=== PATIENT | male | born 1965 | race Caucasian/White ===

== ENCOUNTER 2019-07-12 17:11 | Emergency (ER) | payer MEDICAID ==
[2019-07-12 17:21] VITALS: BP 147/79
--- NOTE | 2019-07-12 17:46 | ED Physician Documentation ---
PD HPI UPPER EXT INJURY - Stated complaint Stated Complaint: RT HAND INJ - Chief complaint Chief Complaint: Ext Problem - History obtained from History obtained from: Patient - History of Present Illness Location: Right, Hand Type of injury: Fall Where injury occurred: Home Timing - onset: How many days ago (8) Timing - details: Still present Worsened by: Moving Similar symptoms before: Has not had sx before - Additonal information Additional information: The patient is a 54-year-old male who presents with pain on the ulnar aspect of his right hand. He fell while running 8 days ago, impacting his hand on the ground. He denies any other injuries. He is right-hand dominant. He presents now because the pain has not resolved since the initial injury. He has remote history of right wrist fracture. Review of Systems Constitutional: denies: Fever Skin: denies: Rash, Laceration (s) Musculoskeletal: reports: Extremity pain (right hand) Neurologic: denies: Focal weakness, Numbness PD PAST MEDICAL HISTORY - Allergies Allergies/Adverse Reactions: Allergies Allergy/AdvReac Type Severity Reaction Status Date / Time heparin Allergy Unknown Verified 07/12/19 17:21 PD ED PE NORMAL - Vitals Vital signs reviewed: Yes (Systolic hypertension) - General General: Alert and oriented X 3, Well developed/nourished - HEENT HEENT: Atraumatic - Respiratory Respiratory: No respiratory distress - Derm Derm: No rash - Extremities Extremities: Other (There is mild tenderness to palpation at the ulnar aspect of the right hand, without bony tenderness to palpation. He is able to fully flex and extend all digits against resistance. Distal neurovascular is intact. There is no break in the integument.) - Neuro Neuro: Alert and oriented X 3, No motor deficit, No sensory deficit Results - Vitals Vitals: Vital Signs - 24 hr 07/12/19 17:19 Temperature 36.7 C Respiratory 18 Rate Blood Pressure 147/79 H O2 Saturation 99 Oxygen O2 Source Room air - Rads (name of study) Right hand Radiology: Prelim report reviewed, EMP read contemporaneously, See rad report (No acute bony abnormality.) PD MEDICAL DECISION MAKING - ED course Complexity details: reviewed results, considered differential, d/w patient ED course: The patient's presentation is most consistent with contusion to the right hand. X-ray reveals no evidence of acute bony abnormality. I discussed with him the results of the x-ray, expected course of injury, symptomatic treatment, as well as potentially worrisome signs or symptoms that should prompt reevaluation. Departure - Departure Disposition: 01 Home, Self Care Clinical Impression: Contusion of right hand Qualifiers: Encounter type: initial encounter Qualified Code(s): S60.221A - Contusion of right hand, initial encounter Condition: Stable Instructions: ED Contusion Hand Comments: Tylenol or ibuprofen if needed for discomfort. Let pain be your guide to activity level. Follow-up with your primary physician or return to the emergency department if you develop increasing pain or swelling of your hand, or otherwise worsening symptoms.
--- NOTE | 2019-07-12 17:54 | XRAY Report ---
Reason: pain, fall 8 days ago Procedure Date: 07/12/2019 Accession Number: [id number] / [id number] Procedure: XR - Hand 3 View RT CPT Code: FULL RESULT: EXAM: RIGHT HAND RADIOGRAPHY EXAM DATE: 07/12/2019 05:35 PM. CLINICAL HISTORY: Pain, fall 8 days ago. COMPARISON: None. TECHNIQUE: 3 views. FINDINGS: Bones: Normal. No fractures or bone lesions. Joints: Normal. No subluxations. Soft Tissues: Normal. No soft tissue swelling. IMPRESSION: No acute displaced fracture or malalignment. Unremarkable soft tissues. RADIA
== END 2019-07-12 18:04 | disposition home or self-care (01) ==
LOC: ED 17:11
DX: S60.221A Contusion of right hand, initial encounter (principal); W01.0XXA Fall on same level from slipping, tripping and stumbling without subsequent striking against object, initial encounter; Y93.02 Activity, running; Y92.009 Unspecified place in unspecified non-institutional (private) residence as the place of occurrence of the external cause
CPT/HCPCS: 99282; 99283

== ENCOUNTER 2020-08-25 19:57 | Emergency (ER) | payer MEDICAID ==
[2020-08-25] MEDS ORDERED: IBUPROFEN 800 MG TABLET PO STA (20:49)
--- NOTE | 2020-08-25 20:59 | ED Physician Documentation ---
PD HPI UPPER EXT INJURY - Stated complaint Stated Complaint: RIGHT HAND INJURY - Chief complaint Chief Complaint: Ext Problem - History obtained from History obtained from: Patient, Family - History of Present Illness Location: Right, Hand Type of injury: Fall Where injury occurred: Home Timing - onset: Yesterday Pain level max: 7 Pain level now: 6 Improved by: Rest, Ice, Immobilization Worsened by: Moving, Palpating Associated symptoms: Swelling, Discolored. No: Weakness, Numbness, Tingling Recently seen: Not recently seen - Additonal information Additional information: 55-year-old male with right hand pain states started yesterday. States is unsure what happened but thinks he fell. Worse with movement and better with rest. Review of Systems Constitutional: denies: Fever, Chills GI: denies: Vomiting, Diarrhea Skin: denies: Rash Musculoskeletal: denies: Neck pain, Back pain Neurologic: denies: Headache PD PAST MEDICAL HISTORY - Past Medical History Past Medical History: Yes Cardiovascular: Hypertension, High cholesterol Respiratory: COPD Neuro: None Endocrine/Autoimmune: Type 2 diabetes GI: GERD : None HEENT: None Psych: None Musculoskeletal: None Derm: None - Past Surgical History Past Surgical History: Yes Cardiovascular: Coronary stent - Present Medications Home Medications: Ambulatory Orders Medication Instructions Recorded Confirmed Ibuprofen [Motrin] 800 mg PO Q8H PRN #30 tablet 08/25/20 - Allergies Allergies/Adverse Reactions: Allergies Allergy/AdvReac Type Severity Reaction Status Date / Time heparin Allergy Unknown Verified 08/25/20 20:01 - Social History Does the pt smoke?: No Smoking Status: Never smoker Does the pt drink ETOH?: No Does the pt have substance abuse?: No - Immunizations Immunizations are current?: Yes - POLST Patient has POLST: No PD ED PE NORMAL - Vitals Vital signs reviewed: Yes - General General: Alert and oriented X 3, No acute distress - HEENT HEENT: Moist mucous membranes - Neck Neck: Supple, no meningeal sign - Cardiac Cardiac: RRR - Respiratory Respiratory: No respiratory distress, Clear bilaterally - Derm Derm: Warm and dry - Extremities Extremities: Other (R hand - Ecchymosis and swelling to the dorsum of the right hand. Neurovascularly intact. Diffuse tenderness. Soft compartments. Brisk cap refill.) - Neuro Neuro: Alert and oriented X 3 Results - Vitals Vitals: Vital Signs - 24 hr 08/25/20 08/25/20 20:01 20:07 Temperature 36.5 C 36.5 C Heart Rate 68 68 Respiratory 16 16 Rate Blood Pressure 145/75 H 145/75 H O2 Saturation 99 99 Oxygen O2 Source Room air - Rads (name of study) Right hand x-ray Radiology: Prelim report reviewed, EMP read contemporaneously, See rad report (No acute abnormalities) Procedures - Splint (location) volar Splint applied by: Physician, Tech Type of splint: Fiberglass, Short arm Other: Patient tolerated well, No complications, Neurovascular intact PD MEDICAL DECISION MAKING - ED course Complexity details: reviewed results, re-evaluated patient, considered differential, d/w patient, d/w family ED course: Patient was in [place], woke up with a bruised hand. Unclear what happened. No significant findings on x-ray. He is swollen and ecchymotic, no compartment syndrome. No evidence of infection. Placed in a volar splint for comfort we will have him recheck with his doctor in 1 week. Patient counseled regarding signs and symptoms for which I believe and urgent re-evaluation would be necessary. Patient with good understanding of and agreement to plan and is comfortable going home at this time This document was made in part using voice recognition software. While efforts are made to proofread this document, sound alike and grammatical errors may occur. Departure - Departure Disposition: 01 Home, Self Care Clinical Impression: Contusion of right hand Qualifiers: Encounter type: initial encounter Qualified Code(s): S60.221A - Contusion of right hand, initial encounter Condition: Good Instructions: ED Contusion Hand Follow-Up: Marta Baez MD [Primary Care Provider] - Within 1 week Prescriptions: Ibuprofen [Motrin] 800 mg PO Q8H PRN #30 tablet PRN Reason: PAIN &/OR FEVER Comments: There are no fractures visible on your x-ray today. Stay in the splint for the next week and be reevaluated by your doctor next week. Return if you worsen.
--- NOTE | 2020-08-25 21:45 | XRAY Report ---
PROCEDURE: Hand 3 View RT INDICATIONS: fall, R hand pain TECHNIQUE: 3 views of the hand(s) acquired. COMPARISON: None FINDINGS: Bones: No fractures or dislocations. No suspicious bony lesions. Soft tissues: No suspicious soft tissue calcifications. IMPRESSION: Intact right hand. Reviewed by: Elen Perera MD on 08/25/2020 9:43 PM PDT Approved by: Elen Perera MD on 08/25/2020 9:43 PM PDT Station ID: [id number]
[2020-08-25 22:19] VITALS: BP 142/75
== END 2020-08-25 22:18 | disposition home or self-care (01) ==
LOC: ED 19:57
DX: S60.221A Contusion of right hand, initial encounter (principal); W19.XXXA Unspecified fall, initial encounter; I10 Essential (primary) hypertension; E11.9 Type 2 diabetes mellitus without complications
CPT/HCPCS: 29125; 73130; 99283; 99284; A9270

== ENCOUNTER 2020-09-12 13:34 | Outpatient (CLI) | payer MEDICAID ==
--- NOTE | 2020-09-12 17:06 | XRAY Report ---
PROCEDURE: Hand 3 View RT INDICATIONS: RT HAND PAIN TECHNIQUE: 3 views of the hand(s) acquired. COMPARISON: X-ray hand 08/25/2020 FINDINGS: Bones: No fractures or dislocations. No suspicious bony lesions. Soft tissues: No suspicious soft tissue calcifications. IMPRESSION: No visualized acute fracture or dislocation. However, occult injury cannot be excluded. Recommend jagjit rt interval imaging follow-up in 7-10 days as clinically indicated for additional evaluation. Reviewed by: Roya Lea MD on 09/12/2020 5:04 PM PST Approved by: Roya Lea MD on 09/12/2020 5:04 PM PST Station ID: [id number]
== END 2020-09-12 13:35 | disposition home or self-care (01) ==
LOC: DI 13:34
PROVIDERS: ATTEND Family Medicine
DX: M79.641 Pain in right hand (principal)

== ENCOUNTER 2021-01-06 12:12 | Observation (INO) | payer MEDICAID ==
--- NOTE | 2021-01-06 12:58 | ED Physician Documentation ---
History of Present Illness - Stated complaint Stated Complaint: CORBYYAWA - Chief complaint Chief Complaint: Heent - Additonal information Additional information: 55-year-old diabetic male presents to the emergency department for evaluation of 3 episodes over the last 3-4 months in which he will suddenly have palpitations or racing heart, feel as though he is going to faint or pass out. During this time he begins to have visual disturbances in his left eye which feels as though he is looking through a kaleidoscope. These episodes last about 30 minutes. He denies any facial droop loss of speech arm or leg weakness. He denies any chest pain but will feel nauseated during the symptoms. Last episode occurred just about 5 days ago and then again this morning. He denies the symptoms at this time He denies a sensation that the room is spinning. He has had no recent falls or trauma. He is not anticoagulated. He is a diabetic and reports good glucose control with a last A1c under 7. He is a moderate drinker. Denies tobacco. Meds: Metformin, amlodipine, fenofibrate, glipizide, lisinopril, lovastatin, methocarbamol, omeprazole. Review of Systems Constitutional: denies: Fever, Chills Eyes: reports: Other (kaleidascope vision left eye) Ears: reports: Reviewed and negative Nose: reports: Reviewed and negative Throat: reports: Reviewed and negative Cardiac: reports: Palpitations. denies: Chest pain / pressure, Pedal edema, Calf pain Respiratory: denies: Dyspnea, Cough, Hemoptysis, Wheezing GI: reports: Nausea. denies: Abdominal Pain, Abdominal Swelling, Vomiting, Diarrhea, Hematemesis : denies: Dysuria, Frequency Skin: denies: Rash, Lesions, Abrasion (s) Neurologic: reports: Near syncope. denies: Generalized weakness, Focal weakness, Numbness, Difficulty speaking, Syncope, Seizure, Confused, Altered mental status, Headache, Head injury, LOC PD PAST MEDICAL HISTORY - Past Medical History Cardiovascular: Hypertension, High cholesterol Respiratory: COPD Neuro: None Endocrine/Autoimmune: Type 2 diabetes GI: GERD : None HEENT: None Psych: None Musculoskeletal: None Derm: None - Past Surgical History Past Surgical History: Yes Cardiovascular: Coronary stent - Present Medications Home Medications: Ambulatory Orders Medication Instructions Recorded Confirmed Ibuprofen [Motrin] 800 mg PO Q8H PRN #30 tablet 10/19/20 - Allergies Allergies/Adverse Reactions: Allergies Allergy/AdvReac Type Severity Reaction Status Date / Time heparin Allergy Unknown Verified 01/06/21 12:29 - Social History Does the pt smoke?: No Smoking Status: Never smoker Does the pt drink ETOH?: No Does the pt have substance abuse?: No - Immunizations Immunizations are current?: Yes - POLST Patient has POLST: No PD ED PE EXPANDED - General General: Alert, No acute distress - HEENT HEENT: PERRL, EOMI (limited fundoscopiv bilaterally did not reveal blurred optic discs), Moist mucous membranes, Pharynx normal - Eyes Eyes: PERRL, Normal accommodation - Neck Neck: Supple w/out meningeal sx. No: Adenopathy - Cardiac Cardiac: Regular Rate, Regular Rhythm, Radial strong equal, Pedal strong equal, Cap refill < 2 sec. No: Murmur Present - Respiratory Respiratory: Clear to ausultation frieda. No: Distress, Labored - Abdomen Abdomen: Normal Bowel sounds, Distended. No: Tender to palpation - Derm Derm: Normal color, Warm and dry. No: Rash, Petecchiae, Purpura - Extremities Extremities: Normal. No: Deformity, Tenderness, Pedal edema bilateral, Right calf TTP/cord, Left calf TTP/cord - Neuro Neuro: Alert and Oriented X 3, CNII-XII intact, Cerebellar nl, Normal gait, Normal finger nose, Normal speech. No: Nystagmus - GCS Eye Opening: Spontaneous Motor: Obeys Commands Verbal: Oriented Total: 15 Results - Vitals Vitals: Vital Signs - 24 hr 01/06/21 01/06/21 01/06/21 12:26 14:09 16:13 Temperature 36.3 C L Heart Rate 72 59 L Heart Rate [ 59 L Sitting] Heart Rate [ 65 Standing] Heart Rate [ 59 L Supine] Respiratory 16 13 Rate Blood Pressure 129/84 H 126/73 Blood Pressure 114/71 [Sitting] Blood Pressure 143/86 H [Standing] Blood Pressure 126/76 [Supine] O2 Saturation 99 100 Oxygen O2 Source Room air - EKG (time done) 1348 Rate: Rate (enter#) (67) Rhythm: NSR [place]: Normal Intervals: Normal [place] QRS: Normal Ischemia: Normal ST segments Compare to prior EKG: Old EKG unavailable Computer interpretation: Agree with computer - Labs Labs: Laboratory Tests 01/06/21 01/06/21 01/06/21 12:58 12:58 13:01 WBC 6.4 RBC 4.74 Hgb 13.7 L Hct 42.1 MCV 88.8 MCH 28.9 MCHC 32.5 RDW 12.4 Plt Count 291 MPV 10.4 Neut # (Auto) 4.0 Lymph # (Auto) 1.9 Cassia # (Auto) 0.4 Eos # (Auto) 0.1 Baso # (Auto) 0.0 Absolute Nucleated RBC 0.00 Nucleated RBC % 0.0 Whole Blood INR 1.0 Sodium 140 Potassium 3.6 Chloride 105 Carbon Dioxide 22 Anion Gap 13.0 BUN 20 Creatinine 0.9 Estimated GFR (MDRD) 88 L Glucose 166 H Calcium 9.4 Total Bilirubin 0.4 AST 25 ALT 35 Alkaline Phosphatase 35 L Total Protein 7.9 Albumin 4.5 Globulin 3.4 Albumin/Globulin Ratio 1.3 Lipase 40 - Rads (name of study) Angio head Radiology: Final report received (No acute intracranial abnormality. No high- grade stenosis or occlusions. No evidence cerebral aneurysm.) angio neck Radiology: Final report received (No high-grade stenosis or occlusion of the head and neck arteries. Carotid bulbs appear widely patent.) PD MEDICAL DECISION MAKING - ED course Complexity details: reviewed results, re-evaluated patient, considered differential, d/w patient, d/w hr business partner consultant ED course: 55-year-old diabetic male presents emergency department for evaluation of 3 near syncopal episodes that have occurred with increased frequency over the last 3 months. The most recent episode was this morning preceded by a near syncopal event on Tuesday. Patient reports that he is simply sitting begins to feel palpitations and a racing heart and feels as though he will faint. During this time he also develops kaleidoscope vision in the left eye. He denies any focal neuro deficits however. On presentation to the ER today he has intact neuro exam including a cerebellar exam. Screening EKG is nonischemic. CT angiogram o f the head and neck showed no stenosis, occlusions or aneurysm. Patient did have resting orthostatic vital signs completed that also showed no hemodynamic changes. However the sensations that he develops are very suggestive of arrhythmia. Patient will be admitted on an observation status to the hospital overnight for further cardiac monitoring. Testing may include echocardiogram. I discussed the case with Dr. Guzman who agrees to bring the patient in for further evaluation. Patient is agreeable Departure - Departure Disposition: ED Place in Observation Clinical Impression: Near syncope
[2021-01-06 13:09] LABS: BASOPHILS % (AUTO) 0.5 %; EOSINOPHILS # (AUTO) 0.1 10^3/uL (0.0-0.7); EOSINOPHILS % (AUTO) 1.4 %; HCT - HEMATOCRIT 42.1 % (42.0-52.0); HGB - HEMOGLOBIN 13.7 g/dL (14.0-18.0); LYMPHOCYTES # (AUTO) 1.9 10^3/uL (1.5-3.5); LYMPHOCYTES % (AUTO) 29.2 %; MEAN CORPUSCULAR HEMOGLOBIN 28.9 pg (27.0-31.0); MEAN CORPUSCULAR HGB CONC 32.5 g/dL (32.0-36.0); MEAN CORPUSCULAR VOLUME 88.8 fL (80.0-94.0); MEAN PLATELET VOLUME 10.4 fL (7.4-11.4); MONOCYTES # (AUTO) 0.4 10^3/uL (0.0-1.0); MONOCYTES % (AUTO) 5.8 %; NEUTROPHILS % (AUTO) 62.9 %; PLT - PLATELET COUNT 291 10^3/uL (130-450); RED BLOOD COUNT 4.74 10^6/uL (4.70-6.10); RED CELL DISTRIBUTION WIDTH 12.4 % (12.0-15.0); WHITE BLOOD COUNT 6.4 x10^3/uL (4.8-10.8)
[2021-01-06] MEDS ORDERED: IOVERSOL 320 100 ML VIAL IVP ONE ×2 (13:13→14:20)
[2021-01-06 13:24] LABS: ALBUMIN 4.5 g/dL (3.2-5.5); ALBUMIN/GLOBULIN RATIO 1.3 (1.0-2.2); BILIRUBIN,TOTAL 0.4 mg/dL (0.2-1.0); CALCIUM 9.4 mg/dL (8.5-10.3); CREATININE 0.9 mg/dL (0.6-1.2); POTASSIUM 3.6 mmol/L (3.5-5.0); TOTAL PROTEIN 7.9 g/dL (6.7-8.2)
--- NOTE | 2021-01-06 14:32 | CT Report ---
PROCEDURE: ANGIO HEAD W/WO INDICATIONS: Kaleidoscope vision CONTRAST: IV CONTRAST: Optiray 320 ml: 80 PO CONTRAST: *NO PO CONTRAST TECHNIQUE: Precontrast 4.5 mm thick angled axial sections acquired from the foramen magnum to the vertex. Afte r the administration of intravenous contrast, 1 mm thick sections acquired through the [place] is. Postcontrast 4.5 mm thick sections then re-acquired from the foramen magnum to the vertex. 3-di mensional qpzcyvf-zprkcvryk-nqnkxvktfz (MIP) and/or volume rendering reformats were acquired of the c entral intracranial vasculature. For radiation dose reduction, the following was used: automated ex posure control, adjustment of mA and/or kV according to patient size. COMPARISON: Concurrent CT angiogram of the neck. FINDINGS: Image quality: Excellent. Anterior circulation: Intracranial internal carotid arteries are patent bilaterally. The paired ant erior cerebral arteries is patent bilaterally. The middle cerebral arteries is patent. The anterior communicating artery is patent. No high-grade stenosis, occlusion, or discrete filling defects. No cerebral aneurysm identified. Posterior circulation: Visualized portions of the vertebral arteries appear patent and join to form a patent basilar artery. The posterior cerebral arteries are patent bilaterally. No high-grade steno sis, occlusion, or discrete filling defects. No cerebral aneurysm identified. CSF spaces: Ventricles are normal in size and shape. Basal cisterns are patent. No extra-axial flu id collections. Brain: No intracranial hemorrhage, mass, or mass effect. [place]-white matter interface appears preserve d. No abnormal intracranial enhancement. No evidence of mass effect on the optic chiasm. Skull and face: Calvarium and facial bones appear intact, without suspicious lesions. The globes trevor ear symmetric and intact. No intraorbital mass lesions or fluid collections. The optic nerves appear symmetric in size. There are small nodules within the parotid glands bilaterally likely representing small intraparotid lymph nodes. Sinuses: Visualized sinuses demonstrate mild mucosal thickening within the left maxillary sinus. The mastoid air cells are clear. IMPRESSION: 1. No acute intracranial abnormality. 2. No high-grade stenosis or occlusion of the central intracranial arteries. 3. No evidence of cerebral aneurysm. 5. No definite acute abnormality identified in the orbits. Reviewed by: Ivan Yeung MD on 01/06/2021 1:30 PM AKST Approved by: Ivan Yeung MD on 01/06/2021 1:30 PM [facility] Station ID: [id number]
--- NOTE | 2021-01-06 14:43 | CT Report ---
PROCEDURE: ANGIO NECK W INDICATIONS: kaleidoscope vision CONTRAST: IV CONTRAST: Optiray 320 ml: 80 PO CONTRAST: *NO PO CONTRAST TECHNIQUE: After the administration of intravenous contrast, 1.5 mm axial sections acquired from the aortic arch to the [place] of [place]. Coronal 3-D maximum intensity projection (MIP) and/or volume rendering ref ormats were then performed. For radiation dose reduction, the following was used: automated exposur e control, adjustment of mA and/or kV according to patient size. COMPARISON: Concurrent CTA head. FINDINGS: Image quality: Excellent. Carotid system: The great vessels demonstrate a conventional anatomy as they arise from the aortic a rch. The origins of the common carotid arteries appear patent. The common carotid arteries demonstr ate normal calibers and courses. The bifurcation regions appear normal bilaterally. The internal ca rotid arteries demonstrate normal caliber and course. Posterior circulation: The origins of the vertebral arteries appear patent. The more superior porti ons of the vertebral arteries demonstrate normal course and caliber. They join to form a normal appe aring basilar artery. Soft tissues: Visualized neck soft tissues demonstrate no suspicious abnormalities. The thyroid gla nd is heterogeneous in appearance without a discrete nodule identified on CT. Bones: No suspicious bony lesions. Visualized cervical spine demonstrates preserved alignment. Ther e is mild degeneration at the atlantoaxial joint. IMPRESSION: 1. No high-grade stenosis or occlusion of the head and neck arteries. Carotid bulbs appear widely pat ent. The estimate of stenosis included in the report of the imaging study was calculated using the NASCET method Reviewed by: Ivan Yeung MD on 01/06/2021 1:42 PM [place] Approved by: Ivan Yeung MD on 01/06/2021 1:42 PM [place] Station ID: [id number]
[2021-01-06] MEDS ORDERED: ACETAMINOPHEN 325 MG TABLET PO PRN (16:18)
[2021-01-06] MEDS ORDERED: ONDANSETRON ODT 4 MG TABLET TL PRN (16:18)
[2021-01-06] MEDS ORDERED: ONDANSETRON 4 MG/2 ML VIAL IVP PRN (16:18)
[2021-01-06] MEDS ORDERED: SODIUM CHLORIDE FLUSH 0.9% 10 ML SYRINGE IVP PRN (16:18)
--- NOTE | 2021-01-06 18:01 | HISTORY & PHYSICAL EXAMINATION ---
Chief Complaint - Chief Complaint Chief Complaint: palpitation and fainting History of Present Illness - Admitted From Admitted From:: ER - History Obtained From Records Reviewed: [facility] History obtained from: pt Exam Limitations: no - History of Present Illness HPI Comment/Other: This is a 55-year-old male with a medical history significant for CAD with stent on 9 yrs ago, diabetic, HTN, HLD, COPD, who presents to the emergency department complain of palpitations or racing heart, feeling of faint or pass out. pt repor t he had three episodes over the last 3-4 months as happened in this morning, and happened about 5 days ago, in which he suddenly had palpitations or racing heart, feel as though he is going to faint or pass out again. During the time he had visual disturbances in his left eye as though he is looking through a kaleidoscope as his description, he also feel nauseated. He denies focal neuro deficit, Unilateral or bilateral weakness, Chest pain. He denies fever, chill, wheezing, shortness of breath. Route lab test was unremarkable. TSH is in normal arrange. EKG is Sinus rhythm. CTA of head and neck was unremarkable. In the ER, patient is afebrile, hemodynamic stable, heart rate is above 50. Discussed the care goal with patient, patient request full code. History - Past Medical History Cardiovascular: reports: Hypertension, High cholesterol Respiratory: reports: COPD Neuro: reports: None Endocrine/Autoimmune: reports: Type 2 diabetes GI: reports: GERD : reports: None HEENT: reports: None Psych: reports: None Musculoskeletal: reports: None Derm: reports: None MRSA Hx?: No - Past Surgical History Cardiovascular: reports: Coronary stent - Family & Social History Family History: Mother: Alive and Well, Father: Family History Comment/Other: Patient report his father at age 78 from heart attack and diabetic complication. Her mother is living with CABG procedure. Social History Notes: Patient quit to smoke 10 years ago, Denies alcohol and drug abuse. He is living at [facility], he had 5 daughters. - POLST Patient has POLST: No Meds/Allgy - Home Medications Home Medications: Ambulatory Orders Medication Instructions Recorded Confirmed Ibuprofen [Motrin] 800 mg PO Q8H PRN #30 tablet 08/25/20 Albuterol Sulf [Ventolin Hfa 1 - 2 puffs INH Q4H PRN 01/06/21 Inhaler] Amlodipine Besylate [Norvasc] 10 mg PO DAILY 01/06/21 01/06/21 Fenofibrate Nanocrystallized 145 mg PO DAILY 01/06/21 [Tricor] Lisinopril [Zestril] 40 mg PO DAILY 01/06/21 Lovastatin 40 mg PO DAILY 01/06/21 Metformin HCl [Glucophage] 1,000 mg PO BID 01/06/21 glipiZIDE [Glucotrol] 5 mg PO BID 01/06/21 - Allergies Allergies/Adverse Reactions: Allergies Allergy/AdvReac Type Severity Reaction Status Date / Time heparin Allergy Unknown Verified 01/06/21 12:29 Review of Systems - Constitutional Constitutional: denies: Fatigue, Fever, Chills, Weakness, Poor appetite, Diaphoresis - Eyes Eyes: denies: Pain, Blurred vision, Spots in vision, Field loss, Vision loss - Ears, Nose & Throat Ears, Nose & Throat: denies: Ear pain, Vertigo, Nosebleeds - Cardiovascular Cariovascular: reports: Palpitations. denies: Irregular heart rate, Chest pain, Edema, Lightheadedness, Syncope, Exertional dyspnea, Decr. exercise tolerance - Respiratory Respiratory: denies: Cough, Wheezing, Hemoptysis, SOB at rest, SOB with exertion - Gastrointestinal Gastrointestinal: denies: Abdominal pain, Constipation, Diarrhea, Rectal bleeding, Black stools, Bloody stools, Nausea, Vomiting - Genitourinary Genitourinary: denies: Dysuria, Urgency, Incontinence - Musculoskeletal Musculoskeletal: denies: Muscle pain, Muscle aches, Limited range of motion - Integumentary Integumentary: denies: Rash, Lesions - Neurological Neurological: denies: General weakness, Focal weakness, Headache, Dizziness, Numbness, Pre-existing deficit, Abnormal gait, Seizures, Incoordination, Slurred speech - Psychiatric Psychiatric: denies: Depression, Suicidal, Delusions - Endocrine Endocrine: denies: Polyuria, Polyphagia - Hematologic/Lymphatic Hematologic/Lymphatic: denies: Anemia, Petechiae, Blood clots Prior Level of Functionality: Patient is independent at home Exam - Vital Signs Vital Signs: Vital Signs x48h Temp Pulse Pulse Pulse Pulse Pulse Resp 01/06/21 17:25 36.9 C 56 L 16 01/06/21 16:13 59 L 65 59 L 01/06/21 14:09 59 L 13 01/06/21 12:26 36.3 C L 72 16 BP BP BP BP BP Pulse Ox 01/06/21 17:25 137/74 H 99 01/06/21 16:13 114/71 143/86 H 126/76 01/06/21 14:09 126/73 100 01/06/21 12:26 129/84 H 99 - Physical Exam General Appearance: positive: No acute distress, Alert. negative: Lethargic Eyes Bilateral: positive: Normal inspection, PERRL, No lid inflammation ENT: positive: ENT inspection nml, No signs of dehydration. negative: Purulent nasal drainage Neck: positive: Nml inspection, Trachea midline. negative: Thyromegaly, Tracheal deviation Respiratory: positive: Chest non-tender, No respiratory distress. negative: Breath sounds nml, Wheezes, Rales Cardiovascular: positive: Regular rate & rhythm, No murmur, Bradycardia. negative: Tachycardia, Systolic murmur, Diastolic murmur Peripheral Pulses: positive: 2+ Abdomen: positive: Non-tender, Nml bowel sounds, No distention. negative: Tenderness, Guarding, Rebound Back: positive: Nml inspection Skin: positive: Color nml, No rash, Warm, Dry. negative: Cyanosis, Diaphoresis, Pallor Extremities: positive: Non-tender, Full ROM, Nml appearance. negative: Calf tenderness Neurologic/Psychiatric: positive: Oriented x3, Motor nml, Sensation nml, Mood/affect nml. negative: Weakness, Sensory loss, Facial droop, Slurred/abnml speech, Depressed mood/affect Conclusion/Plan - Problem List (1) Palpitation Conclusion/Plan: Pulled he had 3 time palpitation feeling, sweating and feel fainting, And the happened in this morning again. Patient's routine laboratory test is unremarkable, EKG is sinus rhythm. CTA of the head and neck was unremarkable which tested in ER. We will have echo for patient. We will continue desk monitor patient. Patient's TSH testing is in normal range. (2) Fainting Conclusion/Plan: Patient is hemodynamically stable in the ER, slightly Bradycardia but heart rate is above 50. Echo is pending, EKG is sinus rhythm. CTA of neck and head was unremarkable. It is no clear etiology now. We will continue vital signs monitor and desk monitor and director of laboratory operations (3) Diabetes Conclusion/Plan: Patient has history of diabetes, we will sliding-scale, check glucose course l evel, Keep hypoglycemia protocol (4) HTN (hypertension) Conclusion/Plan: Patient blood pressure is normal now. patient take lisinopril and Norvasc in the home. Continue vital signs monitor see, patient may be overmedicated with blood pressure medicine. (5) COPD (chronic obstructive pulmonary disease) Conclusion/Plan: Patient has no any respiratory distress, We will continue vital signs monitor - Lab Results Fish Bones: 01/07/21 04:07 01/07/21 04:07 Core Measures - Anticipated LOS I expect patient to be DC'd or transferred within 96 hours.: Yes - DVT/VTE - Prophylaxis VTE/DVT Device ordered at admit?: Yes VTE/DVT Prophylaxis med ordered at admit?: Yes
[2021-01-06 18:14] LABS: B. PARAPERTUSSIS- RESP PCR PAN NOT DETECTED; B. PERTUSSIS- RESP PCR PANEL NOT DETECTED; C. PNEUMONIAE- RESP PCR PANEL NOT DETECTED; CORONAVIRUS 229E-RESP PCR NOT DETECTED; CORONAVIRUS HKU1-RESP PCR NOT DETECTED; CORONAVIRUS NL63-RESP PCR NOT DETECTED; CORONAVIRUS OC43-RESP PCR NOT DETECTED; HUMAN METAPNEUMOVIRUS NOT DETECTED; INFLUENZA A- RESP PCR PANEL NOT DETECTED; INFLUENZA B - RESP PCR PANEL NOT DETECTED; M. PNEUMONIAE- RESP PCR PANEL NOT DETECTED; PARAINFLUENZA VIRUS 1 NOT DETECTED; PARAINFLUENZA VIRUS 2 NOT DETECTED; PARAINFLUENZA VIRUS 3 NOT DETECTED; PARAINFLUENZA VIRUS 4 NOT DETECTED; RHINOVIRUS/ENTEROVIRUS NOT DETECTED; RSV- RESP PCR PANEL NOT DETECTED; SARS-CoV-2 -RESP PCR PANEL NOT DETECTED
[2021-01-06] MEDS ORDERED: ALBUTEROL NEB 2.5 MG/3 ML INH PRN (18:38)
[2021-01-06] MEDS: INSULIN ASPART 300 UNIT/3 ML PEN SUBQ SCH (21:20)
[2021-01-06] MEDS: SODIUM CHLORIDE FLUSH 0.9% 10 ML SYRINGE IVP SCH ×2 (21:21→23:41)
[2021-01-07 05:25] LABS: BASOPHILS % (AUTO) 0.5 %; EOSINOPHILS # (AUTO) 0.1 10^3/uL (0.0-0.7); EOSINOPHILS % (AUTO) 2.4 %; HCT - HEMATOCRIT 38.7 % (42.0-52.0); HGB - HEMOGLOBIN 12.4 g/dL (14.0-18.0); LYMPHOCYTES # (AUTO) 2.1 10^3/uL (1.5-3.5); LYMPHOCYTES % (AUTO) 36.8 %; MEAN CORPUSCULAR VOLUME 90.6 fL (80.0-94.0); MEAN PLATELET VOLUME 10.9 fL (7.4-11.4); MONOCYTES # (AUTO) 0.5 10^3/uL (0.0-1.0); MONOCYTES % (AUTO) 9.1 %; NEUTROPHILS # (AUTO) 2.9 10^3/uL (1.5-6.6); NEUTROPHILS % (AUTO) 50.9 %; PLT - PLATELET COUNT 272 10^3/uL (130-450); RED BLOOD COUNT 4.27 10^6/uL (4.70-6.10); RED CELL DISTRIBUTION WIDTH 12.7 % (12.0-15.0); WHITE BLOOD COUNT 5.7 x10^3/uL (4.8-10.8)
[2021-01-07 05:40] LABS: CALCIUM 9.4 mg/dL (8.5-10.3); CREATININE 0.9 mg/dL (0.6-1.2); MAGNESIUM 2.1 mg/dL (1.7-2.8)
[2021-01-07] MEDS: INSULIN ASPART 300 UNIT/3 ML PEN SUBQ SCH ×2 (08:02→11:16)
[2021-01-07] MEDS: SODIUM CHLORIDE FLUSH 0.9% 10 ML SYRINGE IVP SCH (08:04)
[2021-01-07 08:37] LABS: ESTIMATED AVERAGE GLUCOSE 131 mg/dL (70-100); HEMOGLOBIN A1c% 6.2 % (4.27-6.07)
[2021-01-07 11:13] VITALS: BP 141/87
--- NOTE | 2021-01-07 12:10 | PHARMACY PROGRESS NOTE ---
- Best Possible Medication History Admit Date and Time: 01/06/21 1618 Processed by: Pharmacy Medication History completed: Yes Patient Interview: Completed (Interview complete by Amarjit 01/07) Secondary Source(s): Insurance records As the person ultimately responsible for medication therapy, providers are able to order a medication from an existing home medication list in [facility] via the "Reconcile Routine" prior to Confirmation of that medication by telecommunications support. Such practice is discouraged except when the physician, in their clinical judgment, deems that a medical need exists for a medication without regard to previous use.
--- NOTE | 2021-01-07 14:02 | Discharge Plan ---
Discharge Plan Problem Reviewed?: Yes Disposition: Home, Self Care Condition: Stable Diet: Diabetic Activity Restrictions: Activity as Tolerated Shower Restrictions: No (fall precaution) Instruction Topics: ED Near Syncope Unkn, Heart Palpitations Health Concerns: palpitation Plan of Treatment: Your EKG, ECHO, and your lab test, and continuing telemeter monitor in hospital are unremarkable. You may followup with your PCP to have portable phototypesetting equipment monitor you. Care Goals: stabilization and improvement/resolve of your medical conditions Assessment: discussed the all study results, care plan with you, answered your questions, you understood. Additional Instructions or Follow Up instructions: You may followup with your PCP in one week, have portable phototypesetting equipment monitor for you. Should your symptoms return or worsen, you may present ER or call 911 for help. No Smoking: If you smoke, Please STOP! Call for help. Follow-up with: Marta Baez MD [Primary Care Provider] -
--- NOTE | 2021-01-07 14:10 | DISCHARGE SUMMARY ---
Discharge Summary Admit Date: 01/06/21 Discharge Date: 01/07/21 Discharging Provider: Gus Norman Primary Care Provider: Marta Mcqueen Condition at Discharge: Stable Discharge Disposition: 01 Home, Self Care Discharge Facility Name: home - DIAGNOSES Discharge Diagnoses with Status of Each Condition: (1) Palpitation pt denies palpitation in hospital. pt's EKG, ECHO, and your lab test, and continuing telemeter monitor in hospital are unremarkable. pt may followup with his PCP to have portable EKG continue monitor. (2) Fainting pt denies fainting in hospital, he is totally normal and hemodynamic stable in hospital (3) Diabetes A1C is 6.2, stable, resume home meds (4) HTN (hypertension) stable (5) COPD (chronic obstructive pulmonary disease) stable, Patient has no any respiratory distress - HPI History of Present Illness: This is a 55-year-old male with a medical history significant for CAD with stent on 9 yrs ago, diabetic, HTN, HLD, COPD, who presents to the emergency department complain of palpitations or racing heart, feeling of faint or pass out. pt report he had three episodes over the last 3-4 months as happened in this morning, and happened about 5 days ago, in which he suddenly had palpitations or racing heart, feel as though he is going to faint or pass out again. During the time he had visual disturbances in his left eye as though he is looking through a kaleidoscope as his description, he also feel nauseated. He denies focal neuro deficit, Unilateral or bilateral weakness, Chest pain. He denies fever, chill, wheezing, shortness of breath. Route lab test was unremarkable. TSH is in normal arrange. EKG is Sinus rhythm. CTA of head and neck was unremarkable. In the ER, patient is afebrile, hemodynamic stable, heart rate is above 50. Discussed the care goal with patient, patient request full code. - HOSPITAL COURSE Hospital Course: pt was Admitted for complaint of palpitations or racing heart, feeling of faint or pass out. Patient had EKG, echo, telemetry, blood bank laboratory technician, vital signs monitor In hospital, all show unremarkable. Patient denies any palpitation or feeling of fainting in the hospital. Patient is advised to follow-up with his PCP to have portable EKG continue to monitor. - ALLERGIES Allergies/Adverse Reactions: Allergies Allergy/AdvReac Type Severity Reaction Status Date / Time heparin Allergy Unknown Verified 01/06/21 12:29 - MEDICATIONS Home Medications: Ambulatory Orders Medication Instructions Recorded Confirmed Albuterol Sulf [Ventolin Hfa 2 puffs INH Q4H PRN 01/06/21 01/07/21 Inhaler] Amlodipine Besylate [Norvasc] 10 mg PO DAILY 01/06/21 01/07/21 Fenofibrate Nanocrystallized 145 mg PO DAILY 01/06/21 01/07/21 [Tricor] Lisinopril [Zestril] 40 mg PO DAILY 01/06/21 01/07/21 Lovastatin 40 mg PO QPM 01/06/21 01/07/21 Metformin HCl [Glucophage] 1,000 mg PO BID 01/06/21 01/07/21 glipiZIDE [Glucotrol] 5 mg PO BID 01/06/21 01/07/21 Ascorbic Acid Chew [Vitamin C] 500 mg PO DAILY 01/07/21 01/07/21 Aspirin EC [Ecotrin] 81 mg PO QPM 01/07/21 01/07/21 Methocarbamol [Robaxin-750] 750 mg PO DAILY 01/07/21 01/07/21 Omeprazole [PriLOSEC] 20 mg PO DAILY 01/07/21 01/07/21 - PHYSICAL EXAM AT DISCHARGE General Appearance: positive: No acute distress, Alert. negative: Lethargic Eyes Bilateral: positive: Normal inspection, PERRL, No lid inflammation ENT: positive: ENT inspection nml, No signs of dehydration. negative: Purulent nasal drainage Neck: positive: Nml inspection, Trachea midline. negative: Thyromegaly, Tracheal deviation Respiratory: positive: Chest non-tender, No respiratory distress. negative: Wheezes, Rales, Rhonchi Cardiovascular: positive: Regular rate & rhythm, No murmur, Bradycardia. negative: Tachycardia, Systolic murmur, Diastolic murmur Peripheral Pulses: positive: 2+ Abdomen: positive: Non-tender, Nml bowel sounds, No distention. negative: Tenderness, Guarding, Rebound Back: positive: Nml inspection. negative: CVA tenderness (R), CVA tenderness (L) Skin: positive: Color nml, Warm, Dry. negative: Cyanosis, Diaphoresis, Pallor Extremities: positive: Non-tender, Full ROM, Nml appearance. negative: Calf tenderness Neurologic/Psychiatric: positive: Oriented x3, Motor nml, Sensation nml, Mood /affect nml. negative: Weakness, Sensory loss, Facial droop, Slurred/abnml speech, Depressed mood/affect - LABS Result Diagrams: 01/07/21 04:07 01/07/21 04:07 - FOLLOW UP Follow Up: Your EKG, ECHO, and your lab test, and continuing telemeter monitor in hospital are unremarkable. You may followup with your PCP to have portable court recording monitor you. You may followup with your PCP in one week, have portable court recording monitor for you. Should your symptoms return or worsen, you may present ER or call 911 for help. - TIME SPENT Time Spent in Discharge (Minutes): 30
== END 2021-01-07 14:40 | disposition home or self-care (01) ==
LOC: ED 12:12 → MS3 16:18
PROVIDERS: ADMIT Specialist; ATTEND Nurse Practitioner Gerontology
DX: R00.2 Palpitations (principal); R55 Syncope and collapse; I10 Essential (primary) hypertension; E78.5 Hyperlipidemia, unspecified; J44.9 Chronic obstructive pulmonary disease, unspecified; E11.9 Type 2 diabetes mellitus without complications; K21.9 Gastro-esophageal reflux disease without esophagitis; I25.10 Atherosclerotic heart disease of native coronary artery without angina pectoris; Z95.5 Presence of coronary angioplasty implant and graft; Z79.84 Long term (current) use of oral hypoglycemic drugs; Z79.1 Long term (current) use of non-steroidal anti-inflammatories (NSAID); Z79.899 Other long term (current) drug therapy; Z87.891 Personal history of nicotine dependence
CPT/HCPCS: 0202U; 36415; 70496; 70498; 80048; 80053; 83036; 83690; 83735; 84443; 85025; 85610; 93005; 93306; 99284; 99285; A9270; G0378; Q9967

== ENCOUNTER 2021-05-16 11:48 | Emergency (ER) | payer MEDICAID ==
--- NOTE | 2021-05-16 12:57 | ED Physician Documentation ---
PD HPI LOWER EXT INJURY - Stated complaint Stated Complaint: LT KNEE PX - Chief complaint Chief Complaint: Ext Problem - History obtained from History obtained from: Patient - History of Present Illness PD HPI LOW EXT INJURY LOCATION: Left (anterior and medial), Knee Type of injury: Fall (had struck medial knee about 2 1/2 months ago and has hurt on and off since, with worsening the past week or so. Pain left knee, worse with walking and bending. No clicking nor giving out. Does have stiffness when first awakening and initial walking.). No: Twist Where injury occurred: Home Timing - onset: How many months ago (2 1/2 months ago) Worsened by: Moving, Palpating (medial aspect) Associated symptoms: Swelling (some mild effusion of knee.). No: Weakness, Numbness Contributing factors: No: Prior ortho surgery Similar symptoms before: No diagnosis Recently seen: Not recently seen Review of Systems Constitutional: denies: Fever, Chills Skin: denies: Rash, Lesions PD PAST MEDICAL HISTORY - Past Medical History Cardiovascular: Hypertension, High cholesterol Respiratory: COPD Neuro: None Endocrine/Autoimmune: Type 2 diabetes GI: GERD : None HEENT: None Psych: None Musculoskeletal: None Derm: None - Past Surgical History Past Surgical History: Yes Cardiovascular: Coronary stent - Present Medications Home Medications: Ambulatory Orders Medication Instructions Recorded Confirmed Albuterol Sulf [Ventolin Hfa 2 puffs INH Q4H PRN 01/06/21 01/07/21 Inhaler] Amlodipine Besylate [Norvasc] 10 mg PO DAILY 01/06/21 01/07/21 Fenofibrate Nanocrystallized 145 mg PO DAILY 01/06/21 01/07/21 [Tricor] Lisinopril [Zestril] 40 mg PO DAILY 01/06/21 01/07/21 Lovastatin 40 mg PO QPM 01/06/21 01/07/21 Metformin HCl [Glucophage] 1,000 mg PO BID 01/06/21 01/07/21 glipiZIDE [Glucotrol] 5 mg PO BID 01/06/21 01/07/21 Ascorbic Acid Chew [Vitamin C] 500 mg PO DAILY 01/07/21 01/07/21 Aspirin EC [Ecotrin] 81 mg PO QPM 01/07/21 01/07/21 Omeprazole [PriLOSEC] 20 mg PO DAILY 01/07/21 01/07/21 methocarbamoL [Robaxin-750] 750 mg PO DAILY 01/07/21 01/07/21 HYDROcod/ACETAM 5/325 [[place] 5/325] 1 ea PO Q6H PRN #18 tablet 05/16/21 Naproxen Sodium [Naprelan] 375 mg PO BID PRN #20 tab 05/16/21 dexAMETHasone [Decadron] 4 mg PO DAILY #5 tablet 05/16/21 - Allergies Allergies/Adverse Reactions: Allergies Allergy/AdvReac Type Severity Reaction Status Date / Time heparin Allergy Unknown Verified 05/16/21 11:58 - Social History Does the pt smoke?: No Smoking Status: Former smoker Does the pt drink ETOH?: No Does the pt have substance abuse?: No - Immunizations Immunizations are current?: Yes - POLST Patient has POLST: No PD ED PE NORMAL - Vitals Vital signs reviewed: Yes - General General: Alert and oriented X 3, No acute distress, Well developed/nourished - Derm Derm: Normal color, Warm and dry, No rash, Other (no redness nor warmth of the knee. ) - Extremities Extremities: Other (left knee with mild effusion. tender medial joint line and suprapatellar area. No crepitance. collateral testing without pain nor laxity. Cruciate testing without pain nor laxity. ) - Neuro Neuro: Alert and oriented X 3, No motor deficit, No sensory deficit Results - Vitals Vitals: Vital Signs - 24 hr 05/16/21 05/16/21 11:55 14:24 Temperature 36.9 C 36.5 C Heart Rate 82 68 Respiratory 18 16 Rate Blood Pressure 148/80 H 139/84 H O2 Saturation 98 98 Oxygen O2 Source Room air - Rads (name of study) left knee Radiology: Prelim report reviewed, See rad report PD MEDICAL DECISION MAKING - ED course Complexity details: reviewed results, considered differential, d/w patient Departure - Departure Disposition: 01 Home, Self Care Clinical Impression: Left knee tendonitis Meniscal injury Qualifiers: Encounter type: initial encounter Laterality: left Qualified Code(s): S83.8X2A - Sprain of other specified parts of left knee, initial encounter Knee pain Qualifiers: Chronicity: acute Laterality: left Qualified Code(s): M25.562 - Pain in left knee Condition: Stable Record reviewed to determine appropriate education?: Yes Instructions: ED Meniscal Injury Knee Poss Follow-Up: Marta Baez MD [Primary Care Provider] - Enoch Benjamin MD [Provider Admit Priv/Credential] - Prescriptions: dexAMETHasone [Decadron] 4 mg PO DAILY #5 tablet Naproxen Sodium [Naprelan] 375 mg PO BID PRN #20 tab PRN Reason: Pain HYDROcod/ACETAM 5/325 [[place] 5/325] 1 ea PO Q6H PRN #18 tablet PRN Reason: Pain Comments: Your knees seems to have likely a couple of processes. Some components of it sound like tendinitis with the tenderness in the muscle and tendon areas. However there is some swelling within the knee (called an effusion) which typically indicates more of an internal process. Your description would sound likely to be a meniscal or cartilage inflammation as well. Use the hinged knee brace when up and around to help support the tendons/muscles as well as less movement on the cartilage. You do not have to have it on when rested. Anti-inflammatories initially of Decadron steroid daily for 5 more days. Add Tylenol or hydrocodone if needed for pains. Consider Tylenol 4 times a day re gularly for the next week. After the steroids, change to naproxen anti-inflammatory twice daily for another 7 to 10 days. Take all of these with food to not bother your stomach. Follow-up with orthopedics regarding further assessment and treatment of the knee, call Tuesday for an appointment. My narcotic instructions I am prescribing a short course of narcotic pain medication for you. These are potentially dangerous and addictive medications that should be used carefully. These medications may constipate you. Take an vswk-gye-opanldm stool softener such as docusate twice daily with plenty of water while taking these medications. If you go 24 hours without a bowel movement, take [id number] MiraLAX, per package instructions. Do not drink or drive while taking these medications. If you received narcotic or sedating medications while in the emergency department do not drive for 24 hours. Store this medication in a safe, secure place and out of reach of children. It is a violation of federal law to give or sell this medication to another person or to use in a manner other than prescribed. The ED will not refill narcotic prescriptions, including prescriptions lost or stolen. You can dispose of unwanted medications at the [facility]'s office or at several pharmacies such as [facility]. Discharge Date/Time: 05/16/21 14:25
--- NOTE | 2021-05-16 13:09 | XRAY Report ---
PROCEDURE: Knee 4 View LT INDICATIONS: Trauma TECHNIQUE: 4 views of the left knee(s) were acquired. COMPARISON: None. FINDINGS: Bones: No fractures or dislocations. No suspicious bony lesions. Age-appropriate degenerative grayson ges are seen. Soft tissues: No joint effusion. No suspicious soft tissue calcifications. IMPRESSION: No definite, posttraumatic abnormality is seen on these plain films. If there is strong clinical concern for internal derangement of the knee, please consider a dedicated , scheduled knee MRI for further evaluation (assuming that there is no contraindication). Reviewed by: Jesus Connell MD on 05/16/2021 12:08 PM CAITIE Approved by: Jesus Connell MD on 05/16/2021 12:08 PM CAITIE Station ID: [id number]
[2021-05-16] MEDS ORDERED: CHERRY SYRUP 10 ML UDC PO ONE (13:33)
[2021-05-16] MEDS ORDERED: DEXAMETHASONE 10 MG/ML VIAL PO STA (13:33)
[2021-05-16] MEDS ORDERED: HYDROcod/ACETAM 5/325 MG TABLET PO STA (13:33)
[2021-05-16 14:25] VITALS: BP 139/84
== END 2021-05-16 14:25 | disposition home or self-care (01) ==
LOC: ED 11:48
DX: S83.8X2A Sprain of other specified parts of left knee, initial encounter (principal); W22.8XXA Striking against or struck by other objects, initial encounter; Z87.891 Personal history of nicotine dependence
CPT/HCPCS: 73564; 99283; A9270

== ENCOUNTER 2021-06-04 09:54 | Outpatient (CLI) | payer MEDICAID ==
--- NOTE | 2021-06-04 13:27 | XRAY Report ---
PROCEDURE: Knee Standing LT INDICATIONS: KNEE PAIN, LEFT TECHNIQUE: 4 views of the left knee, and 1 view of the right knee. COMPARISON: Left knee radiographs 05/16/2021 FINDINGS: Bones: No acute fractures or dislocations. No suspicious bony lesions. Joint spaces appear normal with weightbearing. Soft tissues: No knee joint effusions. No suspicious soft tissue calcification. IMPRESSION: No acute osseous abnormality. If symptoms persist or there is continued clinical concern, further matthew luation with MRI or CT may be helpful. Reviewed by: Donnell Gilman MD on 06/04/2021 1:26 PM PDT Approved by: Donnell Gilman MD on 06/04/2021 1:26 PM PDT Station ID: [id number]
== END 2021-06-04 23:59 | disposition home or self-care (01) ==
LOC: DI.N 09:54
PROVIDERS: ATTEND Physician Assistant
DX: M25.562 Pain in left knee (principal)